=== PATIENT | male | born 1950 | race Caucasian/White ===

== ENCOUNTER 2020-08-29 13:39 | Emergency (ER) | payer MEDICAID ==
[~2020-08-29] VITALS: Ht 162.6 cm; Wt 72.0 kg
[2020-08-29 15:35] VITALS: BP 135/61
== END 2020-08-29 15:40 | disposition home or self-care (01) ==
LOC: EDBD 13:48 → ER 13:48
DX: F10.129 Alcohol abuse with intoxication, unspecified (principal); Y90.9 Presence of alcohol in blood, level not specified
CPT/HCPCS: 99283